=== PATIENT | male | born 2000 | race Caucasian/White ===

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

== ENCOUNTER 2023-12-23 12:22 | Outpatient (CLI) | payer OTHER ==
[~2023-12-23 12:22] MED LIST: GADOTERATE MEGLUMINE 5 MMOL/10 ML VIAL ONE; LIDOCAINE-MPF 1% 5 ML VIAL ONE; iohexoL-240 10 ML VIAL IVP ONE
[2023-12-23] MEDS: LIDOCAINE-MPF 1% 5 ML VIAL SUBQ STA (13:22)
[2023-12-23] MEDS: iohexoL-240 10 ML VIAL IVP ONE (13:24)
[2023-12-23] MEDS: GADOTERATE MEGLUMINE 5 MMOL/10 ML VIAL IVP ONE (13:25)
--- NOTE | 2023-12-23 14:19 | MRI Report ---
Arthrogram Shoulder LT CLINICAL HISTORY: 23 years of age, Male, L SHOULDER PAIN. Comparison: No priors available Technique: After the administration of 12 mL of dilute intra-articular Gadolinium contrast, oblique c oronal T1 and T2 spin echo with fat saturation, oblique sagittal T1 spin echo with and without fat sa turation, oblique sagittal T2 fast spin echo with fat saturation, axial T1 spin echo with fat saturat ion through the shoulder. Findings: Osseous acromial outlet: No significant degenerative changes of the acromioclavicular joint. Type II acromion. No os acromiale. No subacromial/subdeltoid bursitis. Rotator cuff muscles and tendons: The supraspinatus, and the infraspinatus is unremarkable. The teres minor is unremarkable. The subscapularis is unremarkable. Muscles are intact without evidence of atrophy or edema. Labral and capsular structures: Superior labral tear (series 4, image 10). No paralabral cysts. Biceps tendon and anchor: The intra-articular and extra-articular biceps tendon are intact. Osseous and cartilaginous structures: Bone marrow signal is within normal limits. No fracture or disl ocation. No focal chondral defects. Miscellaneous: No intra-articular bodies. The remaining muscles are normal in bulk without evidence o f atrophy or edema. IMPRESSION: Superior labral tear. No paralabral cyst. Reviewed by: Evelyn Le MD on 12/23/2023 2:17 PM PDT Approved by: Evelyn Le MD on 12/23/2023 2:17 PM PDT Station ID: [id number]
--- NOTE | 2023-12-23 15:21 | XRAY Report ---
PROCEDURE: Arthrogram Needle Placement INDICATIONS: Shoulder pain CONTRAST: 0.1 Dotarem, 5 ml Omnipaque 300. FLUOROSCOPY TIME: 000.1 COMPARISON STUDY: None TECHNIQUE: The risks, benefits, and alternatives of arthrography for injection of gadolinium for MRI, including the risks of bleeding, infection, and joint damage, were discussed with the patient and the patient s igned informed consent. The patient was placed supine on the fluoroscopy table and the right shoulder prepped and draped in usual sterile fashion. Using local anesthesia and sterile technique, the shoul katya joint was accessed using a 22 gauge needle. This was confirmed with injection of Omnipaque 300. A pproximately 10 ml of the following mixture was injected: 20 ml saline and 0.1 ml Dotarem. The needle was withdrawn. The patient tolerated the procedure well. There were no complications. FINDINGS: Fluoroscopic images demonstrate intra-articular location of contrast. IMPRESSION: 1. Successful intra-articular injection of gadolinium for MRI. Reviewed by: Jermaine Pérez MD on 12/23/2023 3:19 PM PDT Approved by: Jermaine Pérez MD on 12/23/2023 3:19 PM PDT Station ID: [id number]
== END 2023-12-23 12:23 | disposition home or self-care (01) ==
LOC: DI 12:22
PROVIDERS: ATTEND Student in an Organized Health Care Education/Training Program
DX: S43.432A Superior glenoid labrum lesion of left shoulder, initial encounter (principal)
CPT/HCPCS: Q9966